=== PATIENT | female | born 1975 | race Two or more races ===

== ENCOUNTER → 2017-03-07 | Outpatient (CLI) | payer BC, OTHER | LOC: FIMAGING 13:16 | PROVIDERS: ATTEND Plastic Surgery | DX: Z12.31 Encounter for screening mammogram for malignant neoplasm of breast (principal) | CPT/HCPCS: G0202 ==

== ENCOUNTER → 2017-03-12 | Outpatient (CLI) | payer OTHER | LOC: FIMAGING 08:57 | PROVIDERS: ATTEND Plastic Surgery | DX: R92.0 Mammographic microcalcification found on diagnostic imaging of breast (principal) | CPT/HCPCS: G0206 ==

== ENCOUNTER 2017-08-27 20:25 | Day surgery (SDC) | payer BC ==
[2017-08-27] MEDS ORDERED: LIDOCAINE 1% 2 ML INJ ONE (20:43)
[2017-08-27] MEDS ORDERED: BUPIVACAINE 0.25% 30 ML SDV ONE (20:51)
[2017-08-27] MEDS ORDERED: GENTAMICIN SULFATE 80 MG/2 ML VIAL ONE (20:51)
[2017-08-27] MEDS ORDERED: LIDOCAINE 1% 300 MG/30 ML SDV ONE (20:51)
[2017-08-27] MEDS ORDERED: BACITRACIN ZINC 14.2 GM OINTTUBE TP ONE (20:51)
[2017-08-27] MEDS ORDERED: BACITRACIN 50,000 UNITS/10 ML SYR IRR ONE (20:52)
[2017-08-27] MEDS ORDERED: ceFAZolin 1 GM/5 ML SYR ONE (20:52)
[2017-08-27] MEDS ORDERED: ceFAZolin 2 GM/SWFI 20 ML SYR IVP ONE (21:00)
--- NOTE | 2017-08-27 21:03 | PDGENHP ---
History & Physical Chief Complaint: right breast swelling after implant exchange History of Present Illness: Rogers villa is a 42 y/o female who had her breast implants exchanged earlier today. She noted sudden swelling and pain of the right breast. She was admitted for exploration and drainage of hematoma. Pertinent Past, Social, Family History: healthy without medical issues. non smoker Relevant Physical Exam: Tense swollen right breast. Cardiorespiratory Assessment: lungs clear. Regular heart rate
[2017-08-27] MEDS ORDERED: ONDANSETRON 4 MG/2 ML VIAL IVP PRN (21:04)
[2017-08-27] MEDS ORDERED: HYDROmorphONE/DILAUDID 2 MG/ML INJ IVP PRN (21:04)
[2017-08-27] MEDS ORDERED: MIDAZOLAM 2 MG/2 ML VIAL IVP ONE (21:04)
[2017-08-27] MEDS ORDERED: fentaNYL 100 MCG/2 ML INJ IVP PRN (21:04)
[2017-08-27] MEDS ORDERED: DEXAMETHASONE 4 MG/ML VIAL IVP PRN (21:04)
[2017-08-27] MEDS ORDERED: ALBUTEROL 3 ML DEYVIAL IH PRN (21:04)
[2017-08-27] MEDS ORDERED: NALOXONE HCL 0.4 MG/ML INJ IVP PRN (21:04)
--- NOTE | 2017-08-27 21:05 | PDANEPAE ---
ANE History of Present Illness Hematoma Evacuation ANE Past Medical History - Cardiovascular History Hx Hypertension: No Hx Arrhythmias: No Hx Chest Pain: No - Pulmonary History Hx COPD: No Hx Asthma/Reactive Airway Disease: No Hx Recent Upper Respiratory Infection: No Hx Sleep Apnea: No ANE Review of Systems Review of systems is: negative Review of Systems: - Exercise capacity Exercise capacity: >=4 METS ANE Patient History - Allergies Allergies/Adverse Reactions: No Known Allergies Allergy (Unverified 08/27/17 21:03) - NPO status NPO Since - Liquids (Date): 08/27/17 NPO Since - Liquids (Time): 18:00 NPO Since - Solids (Date): 08/27/17 NPO Since - Solids (Time): 18:00 ANE Labs/Vital Signs - Vital Signs Blood Pressure: 110/80 Heart Rate: 89 Respiratory Rate: 18 O2 Sat (%): 97 ANE Physical Exam - Airway Neck exam: FROM Mallampati Score: Class 2 - Pulmonary Pulmonary: clear to auscultation - Cardiovascular Cardiovascular: regular rate and rhythym - ASA Status ASA Status: I ANE Anesthesia Plan Anesthesia Plan: GA w LMA
[2017-08-27] MEDS ORDERED: fentaNYL 100 MCG/2 ML INJ ONE ×2 (21:07→21:39)
[2017-08-27] MEDS ORDERED: MIDAZOLAM 2 MG/2 ML VIAL ONE (21:08)
[2017-08-27] MEDS ORDERED: DEXAMETHASONE 4 MG/ML VIAL ONE (21:08)
[2017-08-27] MEDS ORDERED: ONDANSETRON 4 MG/2 ML VIAL ONE (21:08)
[2017-08-27] MEDS ORDERED: PROPOFOL 200 MG/20 ML VIAL ONE (21:09)
[2017-08-27] MEDS ORDERED: HYDROCODONE/APAP 5/325 TAB PO PRN (21:23)
[2017-08-27] MEDS ORDERED: ceFAZolin 2 GM/SWFI 2 GM/20 ML SYR IVP ONE (21:30)
--- NOTE | 2017-08-27 22:12 | POSTANESTH ---
Post Anesthetic Evaluation Cardiovascular Status: Normal, Stable Respiratory Status: Normal, Stable Level of Consciousness/Mental Status: Mildly Sleepy, Arousable Pain Control: Adequate, Prn Tx Ordered Nausea/Vomiting Control: Adequate, Prn Tx Ordered Complications Possibly Related to Anesthesia: None Noted
[2017-08-27] MEDS ORDERED: HYDROCODONE/APAP 5/325 TAB ONE (23:08)
[2017-08-27 23:18] VITALS: BP 125/92
--- NOTE | 2017-08-28 02:55 | GOP ---
[f rep st] OPERATIVE REPORT DATE OF OPERATION: 08/27/2017 SURGEON: Lisa Guerra Jr., MD ANESTHESIA: General inhalational anesthetic. ANESTHESIOLOGIST: Tristin Molina DO. PREOPERATIVE DIAGNOSIS: Expanding right breast hematoma, status post implant exchange. POSTOPERATIVE DIAGNOSIS: Expanding right breast hematoma, status post implant exchange. PROCEDURE PERFORMED: Evacuation right breast hematoma. FINDINGS: ESTIMATED BLOOD LOSS: 150 cc. INDICATIONS: The patient is a 42-year-old white female, underwent a bilateral capsulotomy with impla nt exchange earlier today. She was doing well at home until she noticed sudden spontaneous increase in size of the right breast with sudden increase in pain. She was evaluated and noted to have an exp anding breast hematoma and was brought to the operating room emergently for evacuation. DESCRIPTION OF PROCEDURE: After risks and benefits of procedure were explained to the patient, highl ighting rebleeding, capsular contracture, damage to the implant, asymmetry, temporary or permanent ni pple sensitivity changes, hypertrophic or visible scarring, poor cosmetic outcome, and need for antonino ional procedures, formal operative consent was obtained. She was taken to the operating room. After adequate inhalational general anesthesia was provided by Dr. Molina, her right breast incision was in jected with 1% lidocaine containing adrenaline. She was prepped and draped in normal sterile fashion . Procedure began by opening the incision and opening the breast capsule. Copious both clotted and non clotted bright red arterial blood was evacuated. The implant was removed and placed in triple-an tibiotic saline. Exploration of the pocket revealed a bleeding arterial medial boiler riveter. Hemostas is was obtained with the electrocautery. The remainder of the pocket was examined. Only minor bleed ing was noted. All bleeding was stopped. Meticulous hemostasis was assured. The pocket was rinsed with 1000 cc of triple-antibiotic containing solution. The pocket was inspected again and again, no additional bleeding was noted. The skin edges were wiped down with triple-antibiotic saline. Surgeo n's gloves were changed. The implant was gently replaced into the pocket and a 3 layer closure was p erformed. Prior to closure, a 15 round drain was placed along with 15 cc 0.25% plain Marcaine. She had light sterile dressings applied in the operating room. She was extubated in the OR, taken to rec overy room awake and in stable condition. DRAINS: One LIDIA drain was placed. COMPLICATIONS: None. /[id number]/MODL
== END 2017-08-27 23:29 | disposition home or self-care (01) ==
LOC: FSGY 20:25
PROVIDERS: ATTEND Specialist
PROC: 0H9T0ZZ Drainage of Right Breast, Open Approach (ICD-10-PCS; principal; 2017-08-27 21:00)
DX: L76.32 Postprocedural hematoma of skin and subcutaneous tissue following other procedure (principal); N64.89 Other specified disorders of breast; Z98.82 Breast implant status
CPT/HCPCS: J0171; J0690; J1100; J1580; J2250; J2405; J2704; J3010

== ENCOUNTER → 2018-03-09 | Outpatient (CLI) | payer BC | LOC: FIMAGING 10:22 | PROVIDERS: ATTEND Family Medicine | DX: Z12.31 Encounter for screening mammogram for malignant neoplasm of breast (principal); Z98.82 Breast implant status ==